=== PATIENT | female | born 1960 | race Caucasian/White ===

== ENCOUNTER 2025-04-14 06:36 | Emergency (ER) | payer OTHER, SELFPAY ==
[2025-04-14] VITALS (9 sets, daily range): BP systolic 130–152; BP diastolic 64–77; BMI 33.1
[2025-04-14] MEDS: LOW STRENGTH ASPIRIN 324 MG PO (07:08)
[2025-04-14] MEDS: NITROSTAT (SUBLINGUAL) 0.4 MG SL ×2 (07:11→07:19)
--- NOTE | 2025-04-14 07:17 | ED.GENMED ---
History of Present Illness
General
Chief Complaint: Chest Pain
Source: patient
Exam Limitations: none
Time Seen by Provider: 04/14/25 06:46
Nursing documentation reviewed up to this point in time: agreed with
History of Present Illness
History of Present Illness:
65-year-old female hypertensive diabetic family history of CAD presents with left-sided chest pain initially sharp but now pressure woke her from her sleep around 430 mild shortness of breath, had palpitations few years ago saw cardiology had
echocardiogram, never personally had a history of CAD non-smoker
Review of Systems
Review of Systems
All Other Systems: Not applicable
Constitutional: Denies fever or fatigue
EENT: Reports no symptoms
Respiratory: Reports trouble breathing
Cardiac: Reports chest pain; Denies diaphoresis or syncope
ABD/GI: Reports no symptoms
: Reports no symptoms
Phy Exam
Physical Exam
Physical Exam:
Physical Exam
General: no apparent distress, not acutely ill
Neck: No jaundice
Heart: s1/s2 regular rate and rhythm, no murmur. equal radial pulses.
Lungs: no acute respiratory distress. clear bilaterally
Abdomen: Nontender
Neuro: alert and oriented. no focal neurological deficits
Skin: no rash
Psychiatric: well kept. interactive and cooperative
Extremities: no edema. No calf pain
Scores
Heart Score for Chest Pain Patients
STEMI patient?: No
History: Moderately Suspicious
ECG: Normal
Age: >45 - <65 years
Risk Factors: 1 or 2 Risk Factors
Troponin: </= Normal Limit
Heart Score for Chest Pain Patients: 3
Heart Score Risk: 2.5% MACE over next 6 weeks
Course
Orders/Labs/Results
Orders:
Orders
04/14/25 06:37
ECG [Electrocardiogram (*1)] Urgent
Reason for Study: Chest Pain
04/14/25 06:38
EKG- Treatment ONCE
04/14/25 06:46
Aspirin Chewable [Low Strength Aspirin] 324 mg PO NOW STA
Nitroglycerin Sublingual [Nitrostat (Sublingual)] 0.4 mg SL [id number] PRN
CR Chest Portable - 1 View Urgent
Comment:
Reason For Exam: cp
Reason Study Needs to be Portable: Patient Unstable
04/14/25 06:48
Complete Blood Count/With Diff Urgent
Comprehensive Metabolic Panel Urgent
Troponin I Urgent
04/14/25 06:53
D-Dimer Urgent
04/14/25 11:08
Troponin I Urgent
Abnormal Lab Results
04/14/25
06:48
MPV 10.5 H fL
(7.4-10.4)
Chloride 109 H mmol/L
(98-107)
Glucose 136 H mg/dl
(70-99)
Total Bilirubin 1.4 H mg/dl
(0.2-1.3)
04/14/25 06:48
04/14/25 06:48
Vital Signs
Initial and Last Documented VS:
Initial Vital Signs
Pulse Resp BP Pulse Ox
78 20 152/74 98
04/14/25 06:40 04/14/25 06:40 04/14/25 06:40 04/14/25 06:40
Last Documented Vital Signs
Pulse Resp BP Pulse Ox
65 16 133/68 95
04/14/25 10:30 04/14/25 10:30 04/14/25 10:00 04/14/25 10:30
MDM/Problems Addressed
Differential Diagnosis Includes:
ACS PE pneumothorax doubt dissection
MDM/Problems Addressed:
Chest pain
Chronic conditions affecting care: DM and HTN
Acute Exacerbation and/or Progression of Chronic Illness: DM and HTN
*Radiology
Radiology exam reviewed: preliminary read by ED provider
*Pulse Oximetry
Patient hypoxic: no
Comment: 99
*EKG
Interpreted by ED Provider?: Yes
Interpretation: normal
Comparison EKG: no comparison EKG present
Heart Rate: 78
Rate: normal
QRS Pattern: left bundle branch block
Ischemia: non-specific ST changes
*Trailer Mechanic Interpretation
Rate: normal
Interpretation: normal
Heart Rate: 78
Rhythm: sinus
*Critical Care Note
Total Time (30-74mins, 75-104mins- exclusive of procedures): Not Applicable
Update Note
Update Note:
Update, patient chest pain-free after 2 sublingual nitro's chest x-ray noted labs are pending
11:45 AM troponin x 2 undetectable, D-dimer less than 0.5, chest x-ray noted
Patient's remained stable here
Prior stress test noted
Will referred chest pain hotline
ED Attending Note
-
Portions of this chart may have been created with voice recognition software.� Occasional wrong word or��sound alike� substitutions may have occurred due to the inherent limitations of voice recognition software.
Discharge Plan
Departure
Patient Disposition: Home (Routine Discharge)
Date of Disposition: 04/14/25
Time of Disposition: 11:52
Patient with high blood pressure during this ER visit?: No
Condition: Good
Covid-19: Not Applicable
Discharge Problem:
Chest pain
Instructions: Chest Pain CBC Follow Up
Referrals:
Fatoumata Barrett MD [Family Provider, Internal Medicine]
Mina Madison MD [Active, Cardiology] - Next open appointment
Activity Restrictions/Additional Instructions:
Continue aspirin 81 mg a day
Follow-up with cardiology expect a call tomorrow to arrange follow-up care
Return to the ER for worsening symptoms
Interventions
Interventions:
*Risk Screen - Suicide Last Done: 04/14/25 06:40
*General Assessment Last Done: 04/14/25 06:49
*Neglect/Abuse Screening Last Done: 04/14/25 06:40
*ED- Fall Risk Assessment Last Done: 04/14/25 06:49
*ED COVID-19 Vaccine History Last Done: 04/14/25 06:49
ED- Cardiac Assessment Last Done: 04/14/25 06:49
Discharge Date and Time
Print Language: UKRAINIAN
[2025-04-14 07:54] LABS: D-Dimer 0.38 ug/mlFEU (0.00-0.50)
[2025-04-14 08:08] LABS: ALT (SGPT) 32 U/L (0-35); AST (SGOT) 31 U/L (14-36); Albumin 4.6 g/dl (3.5-5.0); Alkaline Phosphatase 83 U/L (38-126); Blood Urea Nitrogen 17 mg/dl (7-17); Calcium 9.7 mg/dl (8.4-10.2); Carbon Dioxide 25 mmol/L (22-30); Chloride 109 mmol/L (98-107); Estimated Creatinine Clearance 82 ml/min; Glucose 136 mg/dl (70-99); Potassium 4.3 mmol/L (3.5-5.1); Sodium 142 mmol/L (135-145); Total Bilirubin 1.4 mg/dl (0.2-1.3); Total Protein 7.2 g/dl (6.3-8.2); eGFR > 60.00
[2025-04-14 08:17] LABS: % Basophils 0.6 % (0-2); % Immature Granulocytes 0.4 % (0-0.5); % Lymphocytes 42.2 % (20.5-51.1); % Monocytes 7.2 % (1.7-9.3); % Neutrophils 48.6 % (42.2-75.2); Absolute Basophils 0.1 10^3/uL (0-0.2); Absolute Eosinophils 0.1 10^3/uL (0-0.7); Absolute Lymphocytes 3.3 10^3/uL (1.2-3.4); Absolute Monocytes 0.6 10^3/uL (0.1-0.6); Absolute Neutrophils 3.8 10^3/uL (1.4-6.5); Hematocrit 41.6 % (37.0-47.0); Hemoglobin 14.1 g/dL (12.0-16.0); Mean Corp Hgb Conc. 33.9 g/dL (33.0-37.0); Mean Corpuscular Hgb 30.4 pg (27.0-31.0); Mean Corpuscular Volume 89.7 fL (81.0-99.0); Mean Platelet Volume 10.5 fL (7.4-10.4); Nucleated Red Blood Cells % 0 %; Platelet Count 201 10^3/uL (130-400); Red Blood Cell Count 4.64 10^6/uL (4.20-5.40); Red Cell Dist. Width 13.1 % (11.5-14.5); White Blood Cell Count 7.8 10^3/uL (4.8-10.8)
[2025-04-14 08:24] LABS: Troponin I < 0.012 ng/ml
[2025-04-14 11:41] LABS: Troponin I < 0.012 ng/ml
== END 2025-04-14 12:15 | disposition home or self-care (01) ==
LOC: EMR 06:36
PROVIDERS: EMERGENCY PHYSICIAN Emergency Medicine; FAMILY PHYSICIAN Internal Medicine
DX: R07.89 Other chest pain (principal); I10 Essential (primary) hypertension; E11.9 Type 2 diabetes mellitus without complications; Z82.49 Family history of ischemic heart disease and other diseases of the circulatory system
CPT/HCPCS: 99283; 71045; 80053; 84484; 85025; 85379; 93005

== ENCOUNTER → 2025-04-30 12:12 | Outpatient (REF) | payer OTHER, SELFPAY | LOC: RCS 12:12 | PROVIDERS: ATTENDING PHYSICIAN Internal Medicine; FAMILY PHYSICIAN Internal Medicine | DX: R07.9 Chest pain, unspecified (principal); I44.7 Left bundle-branch block, unspecified; Z82.49 Family history of ischemic heart disease and other diseases of the circulatory system; I36.1 Nonrheumatic tricuspid (valve) insufficiency | CPT/HCPCS: 78452; 93017; A9500; J2785 ==

== ENCOUNTER → 2025-05-02 08:04 | Outpatient (REF) | payer OTHER, SELFPAY | LOC: RCS 08:04 | PROVIDERS: ATTENDING PHYSICIAN Internal Medicine; FAMILY PHYSICIAN Internal Medicine | DX: R07.9 Chest pain, unspecified (principal); I44.7 Left bundle-branch block, unspecified; Z82.49 Family history of ischemic heart disease and other diseases of the circulatory system; I36.1 Nonrheumatic tricuspid (valve) insufficiency | CPT/HCPCS: 93306 ==

== ENCOUNTER → 2025-09-18 09:56 | Outpatient (REF) | payer OTHER, SELFPAY | LOC: RAD 09:56 | PROVIDERS: ATTENDING PHYSICIAN Internal Medicine; FAMILY PHYSICIAN Internal Medicine | DX: R07.9 Chest pain, unspecified (principal) | CPT/HCPCS: 75574; Q9967 ==